=== PATIENT | male | born 1980 | race Caucasian/White ===

== ENCOUNTER 2021-12-16 13:32 | Emergency (ER) | payer OTHER ==
[~2021-12-16] VITALS: Ht 170.2 cm; Wt 62.6 kg
[2021-12-16] MEDS ORDERED: RISP1TAB7 PO (13:50)
[2021-12-16] MEDS ORDERED: CLON0.5T PO (13:50)
[2021-12-16] MEDS ORDERED: GABA600T12 PO (13:50)
[2021-12-16] MEDS ORDERED: LAMO200T2 PO (13:50)
[2021-12-16] MEDS ORDERED: TRIA0.252 PO (13:50)
[2021-12-16] MEDS: IV NORMAL SALINE 1000 ML BAG IV ONE ×2 (14:24→15:16)
[2021-12-16 14:36] LABS: HEMATOCRIT 48.1 % (36.7-47.1); MEAN CORPUSCULAR HEMOGLOBIN 32.1 uug (23.8-33.4); MEAN CORPUSCULAR VOLUME 93.9 fL (73.0-96.2); PLATELET COUNT (AUTO) 233 K/uL (152-348)
[2021-12-16] MEDS: diphenhydrAMINE 50 MG/1 ML VIAL IV ONE (14:36)
[2021-12-16] MEDS: METOCLOPRAMIDE HCL 10 MG/2 ML VIAL IV ONE (14:36)
[2021-12-16] MEDS ORDERED: PANTOPRAZOLE SODIUM 40 MG VIAL ONE (14:36)
[2021-12-16] MEDS: PANTOPRAZOLE SODIUM 40 MG VIAL IV ONE (14:36)
[2021-12-16] MEDS ORDERED: diphenhydrAMINE 50 MG/1 ML VIAL ONE (14:36)
[2021-12-16] MEDS ORDERED: METOCLOPRAMIDE HCL 10 MG/2 ML VIAL ONE (14:36)
[2021-12-16 14:41] LABS: CARBON DIOXIDE 27 mmol/L (21-32); CHLORIDE 104 mmol/L (98-107); GLUCOSE 95 mg/dL (74-106); POTASSIUM 3.9 mmol/L (3.5-5.1); UREA NITROGEN, BLOOD 11 mg/dL (7-18)
[2021-12-16 14:50] LABS: ALANINE AMINOTRANSFERASE 24 U/L (16-63); ALKALINE PHOSPHATASE 87 U/L (50-136); ASPARTATE AMINOTRANSFERASE 11 U/L (15-37); BILIRUBIN,DIRECT 0.2 mg/dL (0.0-0.2); BILIRUBIN,TOTAL 0.7 mg/dL (0.2-1.0); LIPASE 76 U/L (73-393); TOTAL PROTEIN, SERUM 7.6 g/dL (6.4-8.2)
--- NOTE | 2021-12-16 16:12 | NUR ---
Pt states feeling better and able totolorate PO intake.
[2021-12-16] MEDS ORDERED: METO-295 PO (16:26)
[2021-12-16] MEDS ORDERED: ONDA8TAB13 PO (16:26)
[2021-12-16] MEDS ORDERED: AMOX-430 PO (16:26)
[2021-12-16 16:36] VITALS: BP 128/66
--- NOTE | 2021-12-16 16:36 | NUR ---
IV removed. Catheter intact and site benign. Pressure and 4x4 gauze applied to site. No bleeding noted.
--- NOTE | 2021-12-16 16:37 | NUR ---
Patient discharged to home in stable condition. Written and verbal after care instructions given. Patient verbalizes understanding of instructions. Stressed follow up or return to ER for worsening s/s.
== END 2021-12-16 16:37 | disposition home or self-care (01) ==
LOC: ER 13:32
DX: R11.2 Nausea with vomiting, unspecified (principal); Z82.49 Family history of ischemic heart disease and other diseases of the circulatory system; Z20.822 Contact with and (suspected) exposure to COVID-19; F31.9 Bipolar disorder, unspecified; Z79.899 Other long term (current) drug therapy
CPT/HCPCS: 36415; 71045; 80048; 80076; 83690; 84484; 85025; 87426; 93005; 96361; 96374; 96375; 99285; C9113; J1200; J2765; A4663; J7030

== ENCOUNTER 2023-01-23 09:56 | Emergency (ER) | payer OTHER ==
[~2023-01-23] VITALS: Ht 167.6 cm; Wt 59.0 kg
[~2023-01-23 09:56] MED LIST: AMOX-430 PO; CLON0.5T PO; GABA600T12 PO; LAMO200T2 PO; METO-295 PO; ONDA8TAB13 PO; RISP1TAB7 PO; TRIA0.252 PO
[2023-01-23] MEDS ORDERED: FINA1TAB11 PO (10:27)
[2023-01-23] MEDS ORDERED: ONDANSETRON 4 MG/2 ML VIAL IV ONE (10:30)
[2023-01-23] MEDS ORDERED: IV NORMAL SALINE 1000 ML BAG IV ONE ×2 (10:30→12:00)
[2023-01-23] MEDS ORDERED: ONDANSETRON 4 MG/2 ML VIAL ONE (10:38)
[2023-01-23 11:05] LABS: HEMATOCRIT 44.8 % (36.7-47.1); MEAN CORPUSCULAR HEMOGLOBIN 32.5 uug (23.8-33.4); MEAN CORPUSCULAR VOLUME 94.5 fL (73.0-96.2); PLATELET COUNT (AUTO) 164 K/uL (152-348)
--- NOTE | 2023-01-23 11:09 | NUR ---
PT IS IN ROOM #2B. DR ANDRE EVALUATED THE PT.
[2023-01-23] MEDS ORDERED: KETOROLAC TROMETHAMINE 15 MG INJ ONE (11:14)
[2023-01-23] MEDS ORDERED: KETOROLAC TROMETHAMINE 15 MG INJ IVP ONE (11:15)
[2023-01-23 11:16] LABS: CREATININE 1.2 mg/dL (0.6-1.3); POTASSIUM 3.8 mmol/L (3.5-5.1)
[2023-01-23 11:22] LABS: BILIRUBIN,DIRECT 0.3 mg/dL (0.0-0.2); BILIRUBIN,TOTAL 1.1 mg/dL (0.2-1.0); TOTAL PROTEIN, SERUM 7.5 g/dL (6.4-8.2)
[2023-01-23] MEDS ORDERED: IBUP-1955 PO (11:26)
[2023-01-23] MEDS ORDERED: ONDA4TAB5 PO (11:26)
[2023-01-23] MEDS ORDERED: AMOX-430 PO (11:26)
[2023-01-23] MEDS ORDERED: BENZ-13 PO (11:26)
--- NOTE | 2023-01-23 12:37 | NUR ---
PT WAS D/C'd TO HOME. D/C INSTRUCTIONS GIVEN TO THE PT BY DR ANDRE.
[2023-01-23 12:39] VITALS: BP 130/68
== END 2023-01-23 13:13 | disposition home or self-care (01) ==
LOC: ER 09:56
DX: J32.9 Chronic sinusitis, unspecified (principal); R11.10 Vomiting, unspecified; Z90.89 Acquired absence of other organs; Z79.899 Other long term (current) drug therapy; Z79.1 Long term (current) use of non-steroidal anti-inflammatories (NSAID); Z79.2 Long term (current) use of antibiotics; Z20.822 Contact with and (suspected) exposure to COVID-19
CPT/HCPCS: 99285; 96374; 71045; 96361; 96375; 87426; 80076; 80048; 83690; 85025; 36415; 93005; J1885; J2405; J7040 ×2; A4663

== ENCOUNTER 2023-07-12 19:34 | Emergency (ER) | payer OTHER ==
[~2023-07-12] VITALS: Ht 170.2 cm; Wt 61.2 kg
[~2023-07-12 19:34] MED LIST changes: +BENZ-13 PO; +FINA1TAB11 PO; +IBUP-1955 PO; +ONDA4TAB5 PO
[2023-07-12] MEDS ORDERED: HYDR-3980 PO (20:26)
[2023-07-12 20:31] VITALS: BP 94/68; O2SAT 97
[2023-07-15] MEDS ORDERED: PRED50TA PO (15:19)
[2023-07-15] MEDS ORDERED: HYDR2TAB4 PO (15:19)
[2023-07-15] MEDS ORDERED: CYCL5TAB PO (15:19)
== END 2023-07-12 20:32 | disposition home or self-care (01) ==
LOC: ER 19:36
DX: M54.42 Lumbago with sciatica, left side (principal); Z90.89 Acquired absence of other organs; Z79.1 Long term (current) use of non-steroidal anti-inflammatories (NSAID); Z79.2 Long term (current) use of antibiotics; Z79.899 Other long term (current) drug therapy
CPT/HCPCS: A4606; A4663

== ENCOUNTER 2024-02-07 14:15 | Emergency (ER) | payer OTHER ==
[~2024-02-07] VITALS: Ht 170.2 cm; Wt 59.0 kg
[~2024-02-07 14:15] MED LIST changes: +CYCL5TAB PO; +HYDR-3980 PO; +HYDR2TAB4 PO; +PRED50TA PO
[2024-02-07] MEDS: IV NS 1000 ML 1,000 ML IV ONE (14:58)
[2024-02-07] MEDS ORDERED: PROCHLORPERAZINE EDISYLATE 10 MG/2 ML VIAL ONE ×2 (14:59→18:09)
[2024-02-07] MEDS: PROCHLORPERAZINE EDISYLATE 10 MG/2 ML VIAL IV ONE ×2 (15:03→18:17)
[2024-02-07] MEDS ORDERED: HYDROMORPHONE 1 MG/1 ML DISP.SYRIN ONE (15:03)
[2024-02-07] MEDS: HYDROMORPHONE 1 MG/1 ML DISP.SYRIN IV ONE (15:03)
[2024-02-07 15:17] LABS: BASOPHILS % (AUTO) 0.2 % (0.0-2.0); EOSINOPHILS % (AUTO) 0.2 % (0.0-7.0); HEMATOCRIT 43.7 % (36.7-47.1); HEMOGLOBIN 15.3 g/dL (12.5-16.3); LYMPHOCYTES # (AUTO) 1.2 K/uL (0.8-4.8); MEAN CORPUSCULAR HEMOGLOBIN 32.4 uug (23.8-33.4); MEAN CORPUSCULAR HGB CONC 35 g/dL (32.5-36.3); MEAN CORPUSCULAR VOLUME 92.7 fL (73.0-96.2); MONOCYTES # (AUTO) 0.6 K/uL (0.1-1.30); MONOCYTES % (AUTO) 9.6 % (0.0-11.0); PLATELET COUNT (AUTO) 224 K/uL (152-348); RED BLOOD CELL COUNT(AUTO) 4.72 MIL/uL (4.06-5.63); RED CELL DISTRIBUTION WIDTH 13.2 % (12.1-16.2); WHITE BLOOD COUNT (AUTO) 5.8 K/uL (3.6-10.2)
[2024-02-07 15:21] LABS: DIFFERENTIAL COMMENT 1
[2024-02-07 15:33] LABS: CALCIUM 8.6 mg/dL (8.5-10.1); CREATININE 1.1 mg/dL (0.6-1.3); POTASSIUM 3.9 mmol/L (3.5-5.1)
[2024-02-07 15:37] LABS: ALBUMIN 3.9 g/dL (3.4-5.0); BILIRUBIN,DIRECT 0.1 mg/dL (0.0-0.2); BILIRUBIN,TOTAL 0.7 mg/dL (0.2-1.0); TOTAL PROTEIN, SERUM 6.7 g/dL (6.4-8.2)
[2024-02-07] MEDS ORDERED: PROC10TA29 PO (18:04)
[2024-02-07] MEDS ORDERED: PROC25SU29 RC (18:04)
[2024-02-07 18:18] VITALS: BP 118/74; O2SAT 99
== END 2024-02-07 18:19 | disposition home or self-care (01) ==
LOC: ER 14:15
DX: R11.15 Cyclical vomiting syndrome unrelated to migraine (principal); Z98.890 Other specified postprocedural states; Z79.899 Other long term (current) drug therapy
CPT/HCPCS: 99284; 96374; 96375; 80076; 80048; 83690; 85025; 36415; 96376; J0780 ×2; J1170; J7040; A4606; A4663